=== PATIENT | male | born 1995 | race African-American/Black ===

== ENCOUNTER 2017-05-05 14:57 | Emergency (ER) | payer SELFPAY ==
[2017-05-05 15:37] LABS: #Basophils 0.1 thou/uL (0.0-0.2); #Eosinphils 0.2 thou/uL (0.0-0.7); #Lymphocytes 1.8 thou/uL (1.20-3.40); #Monocytes 0.9 thou/uL (0.11-0.59); #Neutrophils 6.2 thou/uL (1.40-6.50); %Basophils 0.6 % (0.0-1.0); %Eosinophils 2.2 % (0.0-10.0); %Lymphocytes 19.4 % (21.0-51.0); %Monocytes 10.3 % (0.0-10.0); %Neutrophils 67.6 % (42.0-75.0); Mean Corpuscular Hemoglobin 27.9 pg (27.0-31.0); Mean Corpuscular Volume 87.2 fl (80.0-94.0); Mean Platelet Volume 6.4 fL (7.4-10.4); Platelet Count 278 thou/uL (130-400); RBC Distribution Width 14.3 % (11.5-14.5); Red Blood Cell (RBC) Count 4.31 mill/uL (4.70-6.10); White Blood Cell (WBC) Count 9.2 thou/uL (4.8-10.8)
[2017-05-05 15:54] LABS: ALT (SGPT) 23 U/L (8-55); AST (SGOT) 17 U/L (5-34); Albumin 3.4 g/dL (3.5-5.0); Alkaline Phosphatase 70 U/L (40-150); Anion Gap 11 mmol/L (10-20); BUN (Urea Nitrogen) 12 mg/dL (8.9-20.6); Bilirubin, Total 0.3 mg/dL (0.2-1.2); Calc. Creatinine Clearance 0 mL/min (70-130); Calcium 9.2 mg/dL (7.8-10.44); Carbon Dioxide 28 mmol/L (22-29); Chloride 104 mmol/L (98-107); Estimated GFR-MDRD Greater than 90; Glucose 76 mg/dL (70-105); Potassium 4.4 mmol/L (3.5-5.1); Protein, Total 6.4 g/dL (6.0-8.3); Sodium 139 mmol/L (136-145)
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
== END 2017-05-05 17:35 | disposition home or self-care (01) ==
LOC: ERS 14:57
DX: R56.9 Unspecified convulsions (principal); F17.210 Nicotine dependence, cigarettes, uncomplicated; Z91.14 Patient's other noncompliance with medication regimen
CPT/HCPCS: 36415; 70450; 80053; 84146; 85025

== ENCOUNTER 2017-08-04 20:38 | Inpatient (IN) | payer OTHER, SELFPAY ==
[~2017-08-04 20:38] MED LIST: ISOVUE-370 76%-LOCM 1 ML ONE; PHENYLEPHRINE-NS 100 MCG/ML 10 ML SYRINGE ONE
[2017-08-04] MEDS ORDERED: Succinylcholine Chloride 20 MG/ML 10 ml SYRINGE FS ONE (20:42)
[2017-08-04] MEDS ORDERED: Midazolam HCl 5 mg/ml Vial ONE (20:42)
[2017-08-04] MEDS ORDERED: Propofol 1,000 MG/100 ML VIAL IV ONE (20:54)
[2017-08-04 20:59] LABS: #Lymphocytes 3.2 thou/uL (1.20-3.40); #Monocytes 0.9 thou/uL (0.11-0.59); %Basophils 0.3 % (0.0-1.0); %Eosinophils 7.9 % (0.0-10.0); %Lymphocytes 26.4 % (21.0-51.0); %Monocytes 7.2 % (0.0-10.0); %Neutrophils 58.2 % (42.0-75.0); Hemoglobin 11.2 g/dL (14.0-18.0); Mean Corpuscular HGB CONC 32.2 g/dL (32.0-36.0); Mean Corpuscular Hemoglobin 27.2 pg (27.0-31.0); Mean Corpuscular Volume 84.6 fl (80.0-94.0); Mean Platelet Volume 6.9 fL (7.4-10.4); Platelet Count 264 thou/uL (130-400); RBC Distribution Width 15.1 % (11.5-14.5); Red Blood Cell (RBC) Count 4.12 mill/uL (4.70-6.10); White Blood Cell (WBC) Count 12.1 thou/uL (4.8-10.8)
[2017-08-04] MEDS ORDERED: Lidocaine 1% w/Epinephrine 1:100K 20 ML VIAL ONE (21:03)
[2017-08-04] MEDS ORDERED: Midazolam HCl 2 mg/2 ml Vial ONE (21:04)
[2017-08-04 21:06] LABS: INR-International Normal Ratio 1.4; PTT 25.4 SEC (22.9-36.1)
[2017-08-04] MEDS ORDERED: CEFAZOLIN/Water 2 GM/20 ML SYRINGE ONE (21:09)
[2017-08-04] MEDS ORDERED: Adacel (T-DAP) 0.5 ML VIAL ONE (21:09)
[2017-08-04 21:11] LABS: ALT (SGPT) 18 U/L (8-55); AST (SGOT) 15 U/L (5-34); Alkaline Phosphatase 46 U/L (40-150); Anion Gap 13 mmol/L (10-20); BUN (Urea Nitrogen) 10 mg/dL (8.9-20.6); Bilirubin, Total 0.4 mg/dL (0.2-1.2); Calc. Creatinine Clearance 0 mL/min (70-130); Calcium 7.5 mg/dL (7.8-10.44); Carbon Dioxide 20 mmol/L (22-29); Chloride 107 mmol/L (98-107); Estimated GFR-MDRD Greater than 90; Globulin 1.9 g/dL (2.4-3.5); Glucose 171 mg/dL (70-105); Potassium 3.2 mmol/L (3.5-5.1); Protein, Total 4.9 g/dL (6.0-8.3); Sodium 137 mmol/L (136-145)
[2017-08-04] MEDS ORDERED: fentaNYL Citrate/PF 2,000 MCG in Sodium Chloride 0.9% 60 ML IV SCH (21:15)
[2017-08-04] MEDS ORDERED: Norepinephrine 8 MG/0.9% NS 0 ML ONE (21:32)
[2017-08-04] MEDS ORDERED: PHENYLEPHRINE-NS 100 MCG/ML 10 ML SYRINGE ONE (21:32)
[2017-08-04 21:56] LABS: Acetaminophen Less than 6.0 mcg/mL (10.0-30.0); Alcohol Less than 10 mg/dL (Less than 10); Salicylate Less than 8.0 mg/dL (15.0-30.0)
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
[2017-08-04] MEDS ORDERED: Fentanyl 100 MCG/2 ML VIAL ONE (22:03)
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
[2017-08-04 22:11] LABS: Bilirubin Negative (Negative); Blood, Urine Negative (Negative); Clarity CLEAR (Clear); Glucose, Urine (Dipstick) Negative (Negative); Leukocyte Negative (Negative); Nitrite Negative (Negative); Protein, Urine (Dipstick) 30 mg/dL (Neg-Trace); Specific Gravity, Urine 1.031 (1.002-1.036); pH, Urine 6.5 (5.0-9.0)
[2017-08-04 22:14] LABS: Bacteria/HPF None Seen HPF (None Seen); Hyaline Casts/LPF 4-6 HYALINE CAST LPF (0-3 Hyaline); Pathc Cast-AUWi Flag 0.72 (0-2.49); RBC/HPF 0-3 HPF (0-3); Squamous Epithelial 0-3 HPF (0-3); WBC/HPF 0-3 HPF (0-3)
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
[2017-08-04 22:21] LABS: Amphetamine Detected (NotDetected); Barbiturates Screen Not Detected (NotDetected); Benzodiazepine Screen Not Detected (NotDetected); Cocaine Metabolite Screen Not Detected (NotDetected); Medtox Control Line Valid? VALID (VALID); Medtox Reader # READER 1; Methadone Not Detected (NotDetected); Methamphetamine Detected (NotDetected); Opiate Screen Not Detected (NotDetected); Oxycodone Screen Not Detected (NotDetected); Phencyclidine (PCP) Not Detected (NotDetected); THC/Cannabinoid Screen Detected (NotDetected); Tricyclic Screen Not Detected (NotDetected)
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
[2017-08-04] MEDS ORDERED: Rocuronium Bromide 50 MG/5 ML VIAL ONE (23:23)
[2017-08-04] MEDS ORDERED: Bacitracin Zinc Ointment 30 gm TUBE ONE (23:51)
[2017-08-05] MEDS ORDERED: hydrALAZINE 20 MG/ML VIAL SLOW IVP PRN (00:26)
[2017-08-05] MEDS ORDERED: Ventilator Sedation Protocol 1 EACH FS SCH (00:26)
[2017-08-05] MEDS ORDERED: Ondansetron HCl/PF 4 MG/2 ML Vial IVP PRN (00:26)
[2017-08-05] MEDS ORDERED: Ondansetron ODT 4 MG TAB PO PRN (00:26)
[2017-08-05] MEDS ORDERED: Dextrose 50% Abboject 50 ML SYRINGE SLOW IVP PRN (00:26)
[2017-08-05] MEDS ORDERED: Dextrose 5% in Water 1,000 ML IV PRN (00:26)
[2017-08-05] MEDS ORDERED: Morphine 2 MG/ML SYRINGE SLOW IVP PRN (00:40)
[2017-08-05] MEDS ORDERED: DISCONTINUE PREVIOUS NARCOTIC PAIN MEDICATIONS AND BENZODIAZEPINES FS SCH (00:40)
[2017-08-05] MEDS ORDERED: Fentanyl BOLUS 250 ML IVPB PRN (00:40)
[2017-08-05] MEDS ORDERED: fentaNYL Citrate/PF 2,000 MCG in Sodium Chloride 0.9% 60 ML IV SCH (00:40)
[2017-08-05] MEDS ORDERED: Lorazepam 2 MG/ML VIAL SLOW IVP PRN (00:40)
[2017-08-05] MEDS ORDERED: Propofol 1,000 MG/100 ML VIAL IV PRN (00:40)
[2017-08-05 01:16] LABS: #Basophils 0.1 thou/uL (0.0-0.2); #Eosinphils 0.3 thou/uL (0.0-0.7); #Lymphocytes 1.7 thou/uL (1.20-3.40); #Monocytes 1.3 thou/uL (0.11-0.59); #Neutrophils 14.1 thou/uL (1.40-6.50); %Basophils 0.3 % (0.0-1.0); %Eosinophils 1.9 % (0.0-10.0); %Monocytes 7.4 % (0.0-10.0); %Neutrophils 80.4 % (42.0-75.0); Hemoglobin 10.1 g/dL (14.0-18.0); Mean Corpuscular HGB CONC 31.5 g/dL (32.0-36.0); Mean Corpuscular Hemoglobin 27.5 pg (27.0-31.0); Mean Corpuscular Volume 87.4 fl (80.0-94.0); Mean Platelet Volume 7.5 fL (7.4-10.4); Platelet Count 193 thou/uL (130-400); Red Blood Cell (RBC) Count 3.68 mill/uL (4.70-6.10); White Blood Cell (WBC) Count 17.5 thou/uL (4.8-10.8)
[2017-08-05] MEDS ORDERED: Rocuronium Bromide 50 MG/5 ML VIAL ONE ×2 (01:18)
[2017-08-05 05:15] LABS: Base Excess (BEa) -2.3 mEq/L (0 (+/-) 2.5); Hematocrit-ABG 30.5 % (42.0-52.0); Hemoglobin (Hb) 9.3 g/dL (14.0-18.0); O2 Tension (PaO2) 613.6 mmHg (80.0-100.0); pH, Arterial 7.36 (7.35-7.45)
[2017-08-05 05:16] LABS: Calcium, Ionized 1.1 mmol/L (1.12-1.30)
[2017-08-05 05:17] LABS: Puncture Site RBR
[2017-08-05] MEDS ORDERED: CEFAZOLIN 1 GM VIAL SLOW IVP SCH (06:00)
[2017-08-05] MEDS ORDERED: CEFAZOLIN 1 GM, Syringe 2.5 ML in Sterile Water 7.5 ML SLOW IVP SCH (06:00)
[2017-08-05] MEDS: Sodium Chloride 0.9% 1,000 ML IV SCH ×2 (06:05→08:11)
[2017-08-05 06:41] VITALS: BMI 21.7
[2017-08-05 06:47] LABS: Base Excess (BEa) 0.2 mEq/L (0 (+/-) 2.5); CO2 Tension 29.9 mmHg (35.0-45.0); O2 Tension (PaO2) 146.3 mmHg (80.0-100.0); pH, Arterial 7.51 (7.35-7.45)
[2017-08-05 06:48] LABS: ALV-art Gradient 28.725 (0-20); Hematocrit-ABG 27.2 % (42.0-52.0); Hemoglobin (Hb) 8.1 g/dL (14.0-18.0); Puncture Site RRA
[2017-08-05] MEDS ORDERED: Potassium Chloride 40 MEQ in Sodium Chloride 0.9% 250 ML 250 ML IVPB SCH (07:45)
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
[2017-08-05] MEDS ORDERED: Potassium Chloride 40 MEQ/100 ML PREMIX BAG ONE (07:48)
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
[2017-08-05 08:14] LABS: Anion Gap 10 mmol/L (10-20); BUN (Urea Nitrogen) 9 mg/dL (8.9-20.6); Calc. Creatinine Clearance 182 mL/min (70-130); Calcium 7.6 mg/dL (7.8-10.44); Carbon Dioxide 23 mmol/L (22-29); Chloride 108 mmol/L (98-107); Estimated GFR-MDRD Greater than 90; Glucose 101 mg/dL (70-105); Magnesium 1.4 mg/dL (1.6-2.6); Phosphorus 2.9 mg/dL (2.3-4.7); Potassium 3.8 mmol/L (3.5-5.1); Sodium 137 mmol/L (136-145)
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
[2017-08-05 08:40] LABS: #Eosinphils 0.4 thou/uL (0.0-0.7); #Lymphocytes 1.9 thou/uL (1.20-3.40); #Monocytes 1.2 thou/uL (0.11-0.59); #Neutrophils 15.5 thou/uL (1.40-6.50); %Basophils 0.2 % (0.0-1.0); %Eosinophils 2.2 % (0.0-10.0); %Neutrophils 81.6 % (42.0-75.0); Mean Corpuscular Volume 84.4 fl (80.0-94.0); Platelet Count 213 thou/uL (130-400); RBC Distribution Width 14.8 % (11.5-14.5); Red Blood Cell (RBC) Count 3.34 mill/uL (4.70-6.10)
[2017-08-05] MEDS ORDERED: Famotidine/PF 20 mg/2ml Vial SLOW IVP SCH (09:00)
[2017-08-05] MEDS ORDERED: Pantoprazole 40 MG VIAL IVP SCH (09:00)
[2017-08-05] MEDS: Acetaminophen 500 MG TAB PO SCH ×2 (11:58→18:15)
[2017-08-05] MEDS: traMADol HCl 50 MG TAB PO SCH ×2 (11:59→18:15)
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
[2017-08-05] MEDS: Cephalexin 250 MG CAP PO SCH ×2 (14:47→20:12)
[2017-08-05] MEDS: Ibuprofen 800 MG TAB PO SCH ×2 (14:47→22:03)
[2017-08-05] MEDS: traMADol HCl 50 MG TAB PO PRN ×2 (14:48→20:33)
[2017-08-05] MEDS ORDERED: Magnesium 2 GM/NS 0.9% 100 ML 2 GM in Premix Bag 1 BAG IVPB SCH (19:00)
[2017-08-06] MEDS: Acetaminophen 500 MG TAB PO SCH ×5 (00:22→23:54)
[2017-08-06] MEDS: traMADol HCl 50 MG TAB PO SCH ×5 (00:22→23:54)
[2017-08-06] MEDS: traMADol HCl 50 MG TAB PO PRN (03:48)
[2017-08-06 05:46] LABS: #Eosinphils 1.1 thou/uL (0.0-0.7); #Lymphocytes 1.3 thou/uL (1.20-3.40); #Neutrophils 9.9 thou/uL (1.40-6.50); %Basophils 0.2 % (0.0-1.0); %Eosinophils 8.4 % (0.0-10.0); %Monocytes 7.7 % (0.0-10.0); %Neutrophils 73.7 % (42.0-75.0); Hemoglobin 8.4 g/dL (14.0-18.0); Mean Corpuscular HGB CONC 32.7 g/dL (32.0-36.0); Mean Corpuscular Hemoglobin 27.4 pg (27.0-31.0); Mean Corpuscular Volume 83.8 fl (80.0-94.0); Mean Platelet Volume 7.2 fL (7.4-10.4); Platelet Count 177 thou/uL (130-400); Red Blood Cell (RBC) Count 3.08 mill/uL (4.70-6.10); White Blood Cell (WBC) Count 13.4 thou/uL (4.8-10.8)
[2017-08-06] MEDS: Ibuprofen 800 MG TAB PO SCH ×3 (06:08→21:36)
[2017-08-06 06:11] LABS: Anion Gap 7 mmol/L (10-20); BUN (Urea Nitrogen) 7 mg/dL (8.9-20.6); Calc. Creatinine Clearance 172 mL/min (70-130); Calcium 8.1 mg/dL (7.8-10.44); Carbon Dioxide 27 mmol/L (22-29); Chloride 104 mmol/L (98-107); Estimated GFR-MDRD Greater than 90; Glucose 107 mg/dL (70-105); Phosphorus 3.5 mg/dL (2.3-4.7); Potassium 4.4 mmol/L (3.5-5.1); Sodium 134 mmol/L (136-145)
[2017-08-06] MEDS: Cephalexin 250 MG CAP PO SCH ×3 (09:12→21:37)
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
[2017-08-07] MEDS: traMADol HCl 50 MG TAB PO SCH ×4 (05:21→23:14)
[2017-08-07] MEDS: Ibuprofen 800 MG TAB PO SCH ×3 (05:22→20:59)
[2017-08-07] MEDS: Acetaminophen 500 MG TAB PO SCH ×4 (05:22→23:14)
[2017-08-07] MEDS: Cephalexin 250 MG CAP PO SCH ×3 (08:40→20:57)
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
--- NOTE | 2017-08-07 09:42 | RAD ---
AP VIEW OF THE CHEST: INDICATION: Chest tube removal. FINDINGS: Since the comparison examination, a right-sided thoracostomy tube has been removed. There is a small right apical pneumothorax. Patchy airspace opacity within the right upper lobe likely related to co ntusion is stable to the most recent comparison. The left lung is clear. Subcutaneous emphysema ove rlying the right chest wall is stable. IMPRESSION: 1. Interval removal of a right-sided chest tube. Small right apical pneumothorax is present. 2. Residual right upper lobe contusion. 3. Findings were called to Patrizia Raphael RN caring for this patient, 8:38 a.m. on 08/07/17. CODE CR POS: [facility]
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
[2017-08-08] MEDS: traMADol HCl 50 MG TAB PO SCH ×2 (05:34→12:03)
[2017-08-08] MEDS: Acetaminophen 500 MG TAB PO SCH ×2 (05:35→12:03)
[2017-08-08] MEDS: Ibuprofen 800 MG TAB PO SCH ×2 (05:35→14:30)
[2017-08-08] MEDS: Cephalexin 250 MG CAP PO SCH ×2 (08:13→14:30)
--- NOTE | 2017-08-08 09:10 | RAD ---
AP VIEW CHEST: HISTORY: Chest tube removal. FINDINGS: AP view chest was obtained on 08/08/17. Comparison is made to previous exam from 08/07/17. AP view chest demonstrates a tiny right-sided apical pneumothorax significantly smaller than on the p revious comparison exam from 1 day earlier. Multiple previously placed chest tubes have been removed. Some gas remains in the right lateral ches t wall. IMPRESSION: 1. Removal of right-sided chest tube. 2. Presence of a tiny right apical pneumothorax. 3. Right chest wall subcutaneous emphysema. 4. No other acute intrathoracic abnormality is seen. POS: [facility]
[2017-08-08 15:51] VITALS: BP 152/89; TEMP 97.8
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
== END 2017-08-08 15:51 | disposition home or self-care (01) | DRG 580 ==
LOC: ERS 20:38 → EEVIPCON 20:38 → CCU 22:05 → ER/OP 08-05 → CCU 08-05 00:45 → SURG A 08-05 13:31
PROVIDERS: ADMIT Specialist; ATTEND Specialist
PROC: 0JDG0ZZ Extraction of Right Lower Arm Subcutaneous Tissue and Fascia, Open Approach (ICD-10-PCS; principal; 2017-08-04)
PROC: 0W9930Z Drainage of Right Pleural Cavity with Drainage Device, Percutaneous Approach (ICD-10-PCS; 2017-08-04)
PROC: 5A1945Z Respiratory Ventilation, 24-96 Consecutive Hours (ICD-10-PCS; 2017-08-04)
PROC: 0BH17EZ Insertion of Endotracheal Airway into Trachea, Via Natural or Artificial Opening (ICD-10-PCS; 2017-08-04)
PROC: 0HQ6XZZ Repair Back Skin, External Approach (ICD-10-PCS; 2017-08-04)
PROC: 0HQ5XZZ Repair Chest Skin, External Approach (ICD-10-PCS; 2017-08-04)
PROC: 0HQDXZZ Repair Right Lower Arm Skin, External Approach (ICD-10-PCS; 2017-08-04)
PROC: 0HQ4XZZ Repair Neck Skin, External Approach (ICD-10-PCS; 2017-08-04)
DX: S51.811A Laceration without foreign body of right forearm, initial encounter (principal); S21.112A Laceration without foreign body of left front wall of thorax without penetration into thoracic cavity, initial encounter; S21.111A Laceration without foreign body of right front wall of thorax without penetration into thoracic cavity, initial encounter; E83.39 Other disorders of phosphorus metabolism; E83.42 Hypomagnesemia; S01.81XA Laceration without foreign body of other part of head, initial encounter; S41.112A Laceration without foreign body of left upper arm, initial encounter; J93.83 Other pneumothorax; S22.31XA Fracture of one rib, right side, initial encounter for closed fracture; S11.91XA Laceration without foreign body of unspecified part of neck, initial encounter; X99.9XXA Assault by unspecified sharp object, initial encounter; Y92.9 Unspecified place or not applicable; S21.212A Laceration without foreign body of left back wall of thorax without penetration into thoracic cavity, initial encounter; S21.211A Laceration without foreign body of right back wall of thorax without penetration into thoracic cavity, initial encounter; E87.6 Hypokalemia; R40.2422 Glasgow coma scale score 9-12, at arrival to emergency department; F17.210 Nicotine dependence, cigarettes, uncomplicated
CPT/HCPCS: 31500; 32551; 36415; 70450; 70486; 70498; 71045; 71260; 71275; 74177; 80048; 80053; 80306; 80307; 81003; 81015; 82150; 82805; 83735; 84100; 85025; 85610; 85730; 86850; 86900; 86901; 90471; 90715; 96360; 96365; 96368; 96375; 99292; A4216; C9113; G0390; G8978-GP-CH; G8979-GP-CH; G8980-GP-CH; G8987-GO-CI; G8988-GO-CI; G8989-GO-CI; J0690; J2001; J2060; J2250; J2270; J2704; J3010; J3475; J3480; J7050; J7620

== ENCOUNTER 2017-08-17 14:10 | Outpatient (CLI) | payer OTHER ==
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
== END 2017-08-17 14:11 | disposition home or self-care (01) ==
LOC: RAD 14:10
PROVIDERS: ATTEND Physician Assistant
DX: Z48.813 Encounter for surgical aftercare following surgery on the respiratory system (principal); Z98.890 Other specified postprocedural states
CPT/HCPCS: 71046

== ENCOUNTER 2017-11-12 10:38 | Emergency (ER) | payer OTHER, SELFPAY | END 2017-11-12 11:44 | disposition home or self-care (01) | LOC: ERS 10:38 | DX: S00.81XA Abrasion of other part of head, initial encounter (principal); R56.9 Unspecified convulsions; F17.210 Nicotine dependence, cigarettes, uncomplicated; Z79.899 Other long term (current) drug therapy; X58.XXXA Exposure to other specified factors, initial encounter | CPT/HCPCS: 99284 ==